=== PATIENT | female | born 1975 | race Asian ===

== ENCOUNTER → 2020-01-05 | Day surgery (SDC) | payer MEDICAID ==
[~2020-01-05] MED LIST: LIDOCAINE HCL 1% 20ML VIAL (Pyxis) INJ ONE; LISI-604 PO; SODIUM BICARBONATE 4% (2.4MEQ) 5ML VIAL IV ONE
== END | disposition home or self-care (01) ==
LOC: RAD 08:26
PROVIDERS: ATTEND Surgery
DX: R92.8 Other abnormal and inconclusive findings on diagnostic imaging of breast (principal); I10 Essential (primary) hypertension; Z79.899 Other long term (current) drug therapy
CPT/HCPCS: 19281; J3490; U0003-CS

== ENCOUNTER 2020-01-10 05:27 | Day surgery (SDC) | payer MEDICAID ==
[~2020-01-10] VITALS: Ht 162.6 cm; Wt 83.5 kg
[~2020-01-10 05:27] MED LIST changes: -LIDOCAINE HCL 1% 20ML VIAL (Pyxis) INJ ONE; -SODIUM BICARBONATE 4% (2.4MEQ) 5ML VIAL IV ONE
[2020-01-10] MEDS ORDERED: LACTATED RINGERS 1,000 ML IV SCH (06:30)
[2020-01-10] MEDS ORDERED: BUPIVACAINE HCL 0.5% (5MG/ML) 50ML ONE (06:53)
[2020-01-10] MEDS ORDERED: METHYLENE BLUE 50 MG/10 ML AMP IV ONE (06:53)
[2020-01-10] MEDS ORDERED: SKIN ADHESIVE 0.7 GM EA TOP ONE (06:53)
[2020-01-10] MEDS ORDERED: NORMAL SALINE 0.9% 10 ML SYR ONE (06:54)
[2020-01-10] MEDS ORDERED: MIDAZOLAM HCL 2 MG/2 ML VIAL ONE (07:08)
[2020-01-10] MEDS ORDERED: CEFAZOLIN SODIUM 1000MG/VIAL ONE (07:08)
[2020-01-10] MEDS ORDERED: PROPOFOL 200MG/20ML VIAL IV ONE (07:08)
[2020-01-10] MEDS ORDERED: FENTANYL CITRATE/PF 50MCG/ML 2ML VIAL ONE (07:08)
[2020-01-10] MEDS ORDERED: LIDOCAINE HCL/PF 1% 10 MG/ML 5ML VIAL ONE (07:08)
[2020-01-10] MEDS ORDERED: ONDANSETRON HCL 4MG/2ML INJ ONE (07:09)
[2020-01-10] MEDS ORDERED: METOCLOPRAMIDE HCL 10MG/2ML VIAL ONE (07:09)
[2020-01-10] MEDS ORDERED: EPHEDRINE SULFATE 50MG/ML VIAL ONE (07:10)
[2020-01-10] MEDS ORDERED: PHENYLEPHRINE HCL 10 MG/ML 1ML (IV VIAL) IV ONE (07:10)
[2020-01-10] MEDS ORDERED: SODIUM CHLORIDE 0.9% 10ML VIAL ONE (07:11)
[2020-01-10 07:20] LABS: UCG SCREEN NEGATIVE
[2020-01-10] MEDS ORDERED: KETOROLAC 30MG/ML VIAL ONE (08:25)
[2020-01-10] MEDS ORDERED: SODIUM CHLORIDE 0.9% 1,000 ML IV SCH (08:51)
[2020-01-10] MEDS ORDERED: ONDANSETRON HCL 4MG/2ML INJ IV PRN (09:00)
[2020-01-10] MEDS ORDERED: MEPERIDINE HCL/PF 25MG/ML CPJ IV PRN (09:00)
[2020-01-10] MEDS ORDERED: HYDROMORPHONE HCL/PF 2MG/ML CPJ IV PRN (09:00)
== END 2020-01-10 11:15 | disposition home or self-care (01) ==
LOC: OR 05:27
PROVIDERS: ATTEND Surgery
DX: R92.8 Other abnormal and inconclusive findings on diagnostic imaging of breast (principal); I10 Essential (primary) hypertension; E78.2 Mixed hyperlipidemia; Z98.890 Other specified postprocedural states; Z79.899 Other long term (current) drug therapy
CPT/HCPCS: 19125; 81025; 88309; J0690; J1885; J2250; J2370; J2405; J2704; J2765; J3010; J3490; Q9968